=== PATIENT | male | born 1965 | race Caucasian/White ===

== ENCOUNTER 2024-04-09 20:42 | Emergency (ER) | payer OTHER, SELFPAY ==
[2024-04-09] VITALS (15 sets, daily range): BP systolic 154–176; BP diastolic 82–110; PULSE 111–128; RESP 14–27; TEMP 36.8; O2SAT 91–96
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
[2024-04-09 21:13] LABS: Abs Immature Grans 0.09 10^3/uL (0.0-0.06); Absolute Basophil Count 0.03 10^3/uL (0.0-0.2); Absolute Eosinophil Count 0.03 10^3/uL (0.0-0.7); Absolute Lymphocyte Count 0.85 10^3/uL (1.2-3.4); Basophils % 0.2 %; Eosinophils % 0.2 %; HCT 45.5 % (40.0-50.0); HGB 14.9 g/dL (13.5-17.5); Immature Grans % 0.6 %; Lymphocytes % 6.1 %; MCHC 32.7 % (32.0-36.0); MCV 92 fL (80-95); Monocytes % 4.9 %; Platelet Count 242 10^3/uL (130-400); RBC 4.97 10^6/uL (4.36-5.78); RDW 13.2 % (11.8-14.1); RDW-SD 44.5 fL; WBC 13.97 10^3/uL (4.4-10.8)
[2024-04-09 21:15] LABS: Absolute Monocyte Count 0.68 10^3/uL (0.1-0.8); Absolute Neutrophil Count 12.29 10^3/uL (1.2-6.7)
[2024-04-09] MEDS: Ondansetron 4 MG/2 ML VIAL IVP (21:18)
[2024-04-09] MEDS: Omnipaque 350 MG/ML 100 ML BTL IJ (21:24)
[2024-04-09] MEDS: Normal Saline - Diluent 50 ML VIAL IJ (21:25)
[2024-04-09] MEDS: Normal Saline Flush 10 ML SYR IVP (21:26)
[2024-04-09 21:34] LABS: INR 1.1 (0.9-1.1); PTT Activated 23.7 sec (23.6-32.8); Prothrombin Time 10.8 sec (9.1-11.1)
[2024-04-09 21:44] LABS: ALT 41 U/L (16-63); AST 76 U/L (15-37); Albumin 3.5 g/dL (3.4-5.0); Alkaline Phosphatase 116 U/L (46-116); Anion Gap 9.3 mmol/L (3-11); BUN 24 mg/dL (7-18); Bilirubin, Direct 0.2 mg/dL (0.0-0.2); Bilirubin, Total 0.82 mg/dL (0.2-1.0); CO2 27.7 mmol/L (21.0-32.0); CREATININE 1.2 mg/dL (0.70-1.30); Calcium 9.7 mg/dL (8.5-10.1); Chloride 101 mmol/L (98-107); Estimated GFR 69.23 (mL/min/1.73m2); Glucose 162 mg/dL (74-106); Lipase 23 U/L (16-77); Magnesium 2.2 mg/dL (1.8-2.4); Sodium 138 mmol/L (136-145); TSH (W/Ref FT4) 2.22 uIU/mL (0.36-3.74); Total Protein 7.5 g/dL (6.4-8.2)
[2024-04-09] MEDS: Prochlorperazine 10 MG/2 ML VIAL IVP (22:08)
[2024-04-09] MEDS: Pantoprazole 40 MG VIAL IVP (22:09)
[2024-04-09] MEDS: Normal Saline 100 ML 400 ML (22:10)
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
[2024-04-09] MEDS: Ondansetron O.D.T. 4 MG TABEF, 3 TABS/BTL PO (22:54)
== END 2024-04-09 22:54 | disposition home or self-care (01) ==
PROVIDERS: Emergency Provider Emergency Medicine
DX: S09.8XXA Other specified injuries of head, initial encounter (principal); R10.9 Unspecified abdominal pain; R11.2 Nausea with vomiting, unspecified; R22.41 Localized swelling, mass and lump, right lower limb; R07.89 Other chest pain; R19.7 Diarrhea, unspecified; V48.0XXA Car driver injured in noncollision transport accident in nontraffic accident, initial encounter
CPT/HCPCS: 36415; 74177; 80053; 83690; 93005; 96374; 96375; 99285; 70450; 71260; 72125; 82248; 83735; 84443; 85025; 85610; 85730; 93010; 99283; J0780; J2405; J2470; J3490

== ENCOUNTER 2024-04-12 16:06 | Inpatient (IN) | payer OTHER, SELFPAY ==
[2024-04-12] VITALS (18 sets, daily range): BP systolic 117–151; BP diastolic 64–89; PULSE 104–115; RESP 15–21; TEMP 37.2; O2SAT 89–98
--- NOTE | 2024-04-12 16:00 | RT.EKG_ITS ---
APPROVED REPORT Exam: Resting ECG Reason for Exam: Chest pain, Dyspnea Patient Location: E HR:110 bpm ECG Measurements Heart Rate 110 AXIS SD 151 P 37 QRSd 108 QRS 72 QT 363 T -6 QTc 490 Conclusion Sinus tachycardia...rate> 99 Probable left atrial enlargement...P >50mS, <-0.10mV V1
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
--- NOTE | 2024-04-12 16:30 | DI.CT_ITS ---
Exam(s) CT CHEST PE ABD PELVIS W EXAM: CT CHEST PE ABD PELVIS W CLINICAL HISTORY: tachy, sob, abd pain distention, recent trauma. TECHNIQUE: Imaging Protocol: Axial CT angiography was performed with multi-slice acquisition and m ulti-planar and/or 3D reconstructions. CONTRAST MATERIAL: Intravenous: Omnipaque 350 Contrast volume:100 ml Oral: None COMPARISON: CT CT CHEST/ABD/PEL W from 04/09/2024 FINDINGS: CHEST: PULMONARY ARTERIES: There is very poor opacification of the pulmonary artery tree due to suboptimal b olus timing. However, there are intraluminal filling defects consistent with pulmonary emboli again noted in the distal right main pulmonary artery as well as arteries right upper right middle and righ t lower lobes. Also multiple left lower lobe vessels involved. LUNGS: Finding in the superior segment right lower lobe again noted extending from hilum to pleural s urface is unchanged. Cannot exclude possibly that this is developing pulmonary infarct. No other si gnificant focal right lung findings.Some atelectasis noted in the left lung base. No pleural effusio ns. No significant focal findings in the trachea and mainstem bronchi. MEDIASTINUM: There is no hilar nor mediastinal adenopathy. Hiatal hernia and uniformly thickened esop hagus wall probably related to chronic esophagitis. CARDIAC: Heart size is upper normal. There is no pericardial effusion. Ventricular ratio is approxi mately 1:1. There is no obvious reflux of intravenous contrast into the intrahepatic IVC. Diameter of the thoracic aorta is normal. There is no evidence of dissection. OSSEOUS: No significant osseous lesions.No thoracic vertebral fractures. ABDOMEN: There is now a small amount of ascites which was not evident 3 days ago. This is seen in the depende nt aspect of the pelvis and the right paracolic gutter and perihepatic. LIVER: Hepatic steatosis again noted. No liver laceration evident. Small amount of perihepatic asci brad seen. GALLBLADDER/BILIARY: Some contrast is seen in the gallbladder lumen related to the prior contrast inf used CT scan of 3 days ago. CBD is not dilated. PANCREAS: No evidence of pancreatic mass nor dilatation of the pancreatic duct. SPLEEN: Spleen is not enlarged. There are no intrasplenic lesions. No splenic laceration. Splenic a nd portal veins are patent. ADRENALS: There are no significant adrenal masses. KIDNEYS:No renal lacerations nor subcapsular hematomas. No incidental cysts. No calculi nor hydrone phrosis. No solid renal masses. ABDOMINAL AORTA: Unremarkable. Intact. No aneurysms. Iliac arteries unremarkable. LYMPH NODES: There is no retroperitoneal or para-aortic adenopathy. ABDOMINAL WALL: There is anterior abdominal wall left para umbilical hernia noted which contains mese nteric fat and a density which is unchanged. Does not appear to contain bowel loops in the hernia sa c. GI: Stomach and duodenum are not distended. However, there are again noted abnormally dilated small bowel loops measuring up to almost 5 cm. The left side of the colon is collapsed. The transverse co dorina and right side of the colon are not collapsed but the appearance of right-sided bowel may reflect prior partial resection. Appendix not identified and may be surgically absent. Sigmoid diverticulosis without evidence of obv ious acute diverticulitis. PELVIS: LYMPH NODES: There is no intrapelvic nor inguinal adenopathy. URINARY BLADDER: No calculi nor masses evident REPRODUCTIVE: Minimally prominent prostate. Seminal vesicles unremarkable. OSSEOUS: No fractures. No significant osseous lesions. IMPRESSION: 1. Compared to prior CT scan 04/09/2024 there are again noted bilateral pulmonary emboli. There maria g ears to be an element of right heart strain. Cannot exclude developing pulmonary infarct in the righ t lower lobe. There are no pleural effusions. 2. Further distension of small bowel loops and there is now development of small amount of ascites. There appears to be evidence of prior partial right/distal small bowel resection. Concerning for thi ckened bowel obstruction. Surgical consultation recommended. 3. No hernia and circumferentially thickened entire esophagus consistent with probable esophagitis. 4. 5. RADIATION DOSE DELIVERED: 824.23mGy.cm Total DLP DATA REPOSITORY: All CT scans at this facility are submitted to the National Radiology Data Registry (NRDR) Dose Index Registry (DIR) with the [employer] ([employer]). RADIATION OPTIMIZATION: All CT scans at this facility use at least one of these dose optimization te chniques: automated exposure control; mA and/or kV adjustment per patient size (includes targeted exa ms where dose is matched to clinical indication); or iterative reconstruction.
--- NOTE | 2024-04-12 16:30 | DI.RAD_ITS ---
Exam(s) XR FEMUR RT EXAM: XR FEMUR RT CLINICAL HISTORY: pain, subacute trauma. TECHNIQUE: 2D digital imaging was performed. COMPARISON: No exams were available for comparison FINDINGS: 4 views There calcific density seen just above the greater trochanter and adjacent to the lesser trochanter. Doubtful for acute fractures. No other osseous findings in the femur. Mild degenerative changes in the hip. No osseous lesions. IMPRESSION: No acute femur fracture evident DATA REPOSITORY: RADIATION DOSE DELIVERED:
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
[2024-04-12 17:45] LABS: Absolute Basophil Count 0.07 10^3/uL (0.0-0.2); Absolute Eosinophil Count 0.08 10^3/uL (0.0-0.7); Absolute Lymphocyte Count 0.74 10^3/uL (1.2-3.4); Absolute Monocyte Count 0.81 10^3/uL (0.1-0.8); Absolute Neutrophil Count 3.62 10^3/uL (1.2-6.7); Basophils % 1.3 %; Eosinophils % 1.4 %; HCT 38.8 % (40.0-50.0); HGB 12.8 g/dL (13.5-17.5); Immature Grans % 3.6 %; Lymphocytes % 13.4 %; MCH 29.6 pg (27.0-33.0); MCV 90 fL (80-95); Monocytes % 14.7 %; Neutrophils % 65.6 %; Nucleated RBC 1.3 % (0.0-0.3); Platelet Count 237 10^3/uL (130-400); RBC 4.32 10^6/uL (4.36-5.78); RDW 13.2 % (11.8-14.1); RDW-SD 43.2 fL; WBC 5.52 10^3/uL (4.4-10.8)
[2024-04-12 17:59] LABS: INR 1.2 (0.9-1.1); PTT Activated 24.4 sec (23.6-32.8); Prothrombin Time 11.5 sec (9.1-11.1)
[2024-04-12 18:06] LABS: ALT 30 U/L (16-63); AST 32 U/L (15-37); Alkaline Phosphatase 91 U/L (46-116); Anion Gap 6.7 mmol/L (3-11); BUN 32 mg/dL (7-18); CO2 29.3 mmol/L (21.0-32.0); CREATININE 1.3 mg/dL (0.70-1.30); Chloride 96 mmol/L (98-107); Estimated GFR 62.89 (mL/min/1.73m2); Glucose 115 mg/dL (74-106); Lipase 32 U/L (16-77); Magnesium 2.1 mg/dL (1.8-2.4); NT-proBNP 44 pg/mL (<300); Sodium 132 mmol/L (136-145); Total Protein 6.5 g/dL (6.4-8.2); Troponin I 4 ng/L (<or=76)
[2024-04-12] MEDS: Ondansetron 4 MG/2 ML VIAL IVP (18:53)
[2024-04-12] MEDS: Omnipaque 350 MG/ML 100 ML BTL IJ (19:05)
[2024-04-12] MEDS: Normal Saline - Diluent 50 ML VIAL IJ (19:05)
[2024-04-12 19:15] LABS: Bilirubin Small (Negative); Blood Negative (Negative); Clarity Clear (Clear); Glucose Negative (Negative); Ketones 15 mg/dL (Negative); Leukocyte Esterase Negative (Negative); Nitrite Negative (Negative); Urobilinogen 0.2 mg/dL (Up to 0.2)
--- NOTE | 2024-04-12 19:43 | DI.VRAD_ITS ---
PROCEDURE INFORMATION: Exam: XR Right Tibia and Fibula Exam date and time: 04/12/2024 19:17 Age: 58 years old Clinical indication: Other: Pain, subacute trauma; Additional info: Tachy, SOB, abd pain distention, recent trauma TECHNIQUE: Imaging protocol: Radiologic exam of the right tibia and fibula. Views: 2 views. COMPARISON: US LOWER EXTREMITY VENOUS RT 04/10/2024 12:29 FINDINGS: Bones/joints: No acute fracture or subluxation. Soft tissues: Soft tissue swelling distally. IMPRESSION: No acute bony pathology. Dictated and Authenticated by: Lindsey Mejia MD. Ordering:NINA Robledo MD
--- NOTE | 2024-04-12 19:43 | DI.VRAD_ITS ---
PROCEDURE INFORMATION: Exam: XR Right Femur Exam date and time: 04/12/2024 19:12 Age: 58 years old Clinical indication: Other: Pain, subacute trauma; Additional info: Tachy, SOB, abd pain distention, recent trauma TECHNIQUE: Imaging protocol: Radiologic exam of the right femur. Views: 2 views. COMPARISON: US LOWER EXTREMITY VENOUS RT 04/10/2024 12:29 FINDINGS: Bones/joints: No acute fracture or subluxation. Soft tissues: Benign-appearing enthesophytes. Benign appearing distal quadriceps enthesophyte. IMPRESSION: No acute bony pathology. Dictated and Authenticated by: Lindsey Mejia MD. Ordering:NINA Robledo MD
--- NOTE | 2024-04-12 19:44 | DI.VRAD_ITS ---
PROCEDURE INFORMATION: Exam: XR Right Foot Exam date and time: 04/12/2024 19:18 Age: 58 years old Clinical indication: Other: Pain, subacute trauma; Additional info: Tachy, SOB, abd pain distention, recent trauma TECHNIQUE: Imaging protocol: Radiologic exam of the right foot. Views: 3 or more views. COMPARISON: CR XR TIB/FIB RT 04/12/2024 19:17 FINDINGS: Bones/joints: Plantar calcaneal spur. Posterior calcaneal spur. No acute fracture or subluxation. Scattered yevj-hy-poazdlod degenerative changes. Soft tissues: Generalized soft tissue swelling. IMPRESSION: No acute bony pathology. Dictated and Authenticated by: Lindsey Mejia MD. Ordering:NINA Robledo MD
--- NOTE | 2024-04-12 19:52 | DI.VRAD_ITS ---
Addendum created by Lindsey Mejia MD on 04/12/2024 8:00:18 PM EDT: This report contains findings that may be critical to patient care. The pertinent findings were communicated via telephone with Venkat Hampton at 19:58 EDT on 04/12/2024. The findings were acknowledged and understood. Initial report created on 04/12/2024 7:51:41 PM EDT: PROCEDURE INFORMATION: Exam: CTA Chest With Contrast CTA Abdomen With Contrast Exam date and time: 04/12/2024 19:02 Age: 58 years old Clinical indication: Shortness of breath; Other: Tachy, SOB, abd pain distention, recent trauma TECHNIQUE: Imaging protocol: Computed tomographic angiography of the chest with contrast. Exam focused on the arteries. Computed tomographic angiography of the abdomen with contrast. Exam focused on the arteries. 3D rendering (Not supervised by radiologist): MIP and/or 3D reconstructed images were created by the technologist. Contrast material: OMNI 350; Contrast volume: 100 ml; Contrast route: INTRAVENOUS (IV); COMPARISON: CT CHEST/ABD/PEL W 04/09/2024 21:54 FINDINGS: VASCULATURE: Pulmonary arteries: Very poor characterization of the pulmonary tree due to poor timing of the contrast bolus; there is however embolic disease in right upper, right middle and right lower lobe lobar to segmental pulmonary arteries, probably at least some small segmental left lower lobe pulmonary artery emboli, without definite saddle embolus. There is probably embolus in the distal right main pulmonary artery. Accounting for the previous technique in different, pulmonary emboli are probably similar to prior. Aorta: No aortic aneurysm. No aortic dissection. Celiac trunk and mesenteric arteries: No occlusion or significant stenosis. Renal arteries: No occlusion or significant stenosis. CHEST: Lungs: Mild dependent subsegmental atelectasis. No airspace consolidation. Pleural spaces: Unremarkable. No pneumothorax. No pleural effusion. Heart: Cardiac size is upper limits of normal. Suspected mild wall thickening of the esophagus is new although fluid-filled distension has resolved. Heart RV/LV ratio: RV to LV ratio is elevated at 1.1. ABDOMEN AND PELVIS: Liver: Fatty liver with likely benign peripheral transient hepatic attenuation defect. No mass lesions are seen. Gallbladder and biliary ducts: Unremarkable. No calcified stones. No ductal dilation. Pancreas: Unremarkable. No mass. No ductal dilation. Spleen: Unremarkable. No splenomegaly. Adrenal glands: Unremarkable. No mass. Kidneys: Unremarkable kidneys. No solid mass. No hydronephrosis. Stomach and bowel: Moderate to severe distension of majority of small bowel measuring up to 5 cm in diameter, multiple air-fluid levels with slight decompression of the distal ileum only. Overall degree of small bowel distension is slightly worsened since prior. The distended small bowel appears to push on the left colon/splenic flexure, and the colon is mildly gas-filled proximal to this level. Distal colon is decompressed. No definite pathologic colonic wall thickening. Intraperitoneal space: No abscess or free air. Trace abdominal and small pelvic free fluid. Reproductive: Moderate prostatic enlargement. Lymph nodes: Unremarkable. No enlarged lymph nodes. Bones/joints: Chronic bony changes with no acute fracture. Soft tissues: Mild dependent subcutaneous edema. Small umbilical hernia containing fat and a tiny amount of fluid/edema. Mild edema around pelvic and upper lower extremity soft tissues/subcutaneous fat. IMPRESSION: 1. Redemonstration of bilateral pulmonary emboli. 2. Evidence of right ventricular strain. 3. Mild dependent subsegmental atelectasis. 4. The moderate to severe small bowel ileus favored over obstruction has worsened. 5. Distended small bowel pushes on left-sided colon which demonstrates persistent distension proximal to this level. 6. Trace abdominal and small pelvic free fluid new since prior. 7. A mild esophagitis appears new. 8. Additional findings as described. Dictated and Authenticated by: Lindsey Mejia MD. Ordering:NINA Robledo MD
[2024-04-12] MEDS: Heparin in 0.45% NaCl 25,000 UNIT/250 ML BAG 18 UNIT IV (20:14)
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
[2024-04-12 21:29] LABS: Troponin I 6 ng/L (<or=76)
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
--- NOTE | 2024-04-12 23:00 | NUR.NOTE ---
Nursing Note: Patient O2 sat drops to 89% on RA. Placed on 1L NC. Oxygenating at 96%
[2024-04-13] VITALS (79 sets, daily range): BP systolic 111–177; BP diastolic 67–142; PULSE 98–120; RESP 11–23; TEMP 37–37.3; O2SAT 88–99
[2024-04-13] MEDS: Ondansetron O.D.T. 4 MG TABEF PO ×2 (02:46→14:32)
[2024-04-13] MEDS: Lactated Ringers 1,000 ML 125 ML IV ×3 (02:47→20:50)
[2024-04-13 03:07] LABS: PTT Activated 80.8 sec (23.6-32.8)
[2024-04-13 04:42] LABS: Troponin I 6 ng/L (<or=76)
[2024-04-13 06:25] LABS: HCT 34.4 % (40.0-50.0); HGB 11.6 g/dL (13.5-17.5); MCH 30.2 pg (27.0-33.0); MCHC 33.7 % (32.0-36.0); MCV 90 fL (80-95); MPV 9.9 fL (8.0-11.0); Platelet Count 236 10^3/uL (130-400); RBC 3.84 10^6/uL (4.36-5.78); RDW 13.3 % (11.8-14.1); RDW-SD 43.2 fL
[2024-04-13 06:44] LABS: ALT 24 U/L (16-63); AST 27 U/L (15-37); Albumin 2.5 g/dL (3.4-5.0); Alkaline Phosphatase 80 U/L (46-116); Anion Gap 3.9 mmol/L (3-11); BUN 30 mg/dL (7-18); Bilirubin, Total 0.84 mg/dL (0.2-1.0); CO2 30.1 mmol/L (21.0-32.0); CREATININE 1.1 mg/dL (0.70-1.30); Calcium 7.7 mg/dL (8.5-10.1); Chloride 99 mmol/L (98-107); Estimated GFR 76.85 (mL/min/1.73m2); Glucose 120 mg/dL (74-106); Magnesium 2.1 mg/dL (1.8-2.4); Potassium 3.5 mmol/L (3.5-5.1); Sodium 133 mmol/L (136-145); Total Protein 5.6 g/dL (6.4-8.2)
[2024-04-13 06:46] LABS: Troponin I 7 ng/L (<or=76)
--- NOTE | 2024-04-13 07:11 | NUR.NOTE ---
Access chart to reconcile EKG orders and EKG's in [facility]. Nursing Note:
--- NOTE | 2024-04-13 08:00 | DI.US_ITS ---
APPROVED REPORT EXAM: Comprehensive 2D, Doppler, and color-flow Echocardiogram Patient Location: ER Room/Bed: 4 Malted Milk Masher: Kaila Mohamud RDCS (AE) Indications: Acute bilateral pulmonary emboli Other Information Study Quality: Fair. Technically limited study due to body habitus, inability to position patient exa m done supine bedside ER. Conclusion Normal left ventricular wall thickness and chamber size. Ejection fraction is 60%. Wall motion is n ormal Right ventricle appears normal in size Both atria are normal in size There is no structural or hemodynamically significant valvular disease Estimated right ventricular systolic pressure is 40 mmHg Wall motion Left Ventricle The left ventricle is normal size. The overall left ventricular systolic function appears normal. The re is normal left ventricular wall thickness. Regional wall motion is not well visualized but grossly normal. There is no ventricular septal defect visualized. LVEF is 60%. Right Ventricle Grossly normal right ventricular size Atria The left atrium size is normal. The right atrium size is normal. The interatrial septum is intact wit h no evidence for an atrial septal defect. Aortic Valve The aortic valve is normal in structure. Aortic valve is trileaflet. There is no aortic valvular sten osis. Trace aortic regurgitation. Mitral Valve The mitral valve is normal in structure. No evidence of mitral valve stenosis. Trace mitral regurgita tion. Tricuspid Valve The tricuspid valve is normal in structure. There is no tricuspid valve stenosis. Trace to mild tricu spid regurgitation. Pulmonic Valve The pulmonary valve is normal in structure. There is no pulmonic valvular stenosis. Trace pulmonic re gurgitation. Great Vessels The aortic root is normal in size. The ascending aorta is normal in size. The IVC was not visualized. Technically limited subcostal imaging. Pericardium Technically limited subcostal imaging. 2D Dimensions IVSD d PLAX 1.01 cm M: 0.6-1.2 Ao Root d 2.96 cm M: 3.1 - 3.7 LVPW d PLAX 1.00 cm M: 0.6 - 1.2 Ao Asc Diam d 3.26 cm M: 2.6 - 3.4 LVID d PLAX 5.20 cm M: 4.2 - 5.8 LVDs 3.60 cm M: 2.5 - 4.0 LV EF Teichholz 57.9 % FS 30.69 % LV EDV (Teich) 127.5 mL LV ESV (Teich) 53.7 mL LA Volume LA Length A4C 4.8 cm LA Length A2C 4.8 cm LA Area A4C s 19.02 cm2 LA Area A2C s 14.42 cm2 LA Vol A4C A-L 64.26 mL LA Vol A2C A-L 36.60 mL LA Vol Biplane A-L 48.7 mL LA Vol/BSA A4C A-L LA Vol/BSA A2C A-L LA Vol/BSA BP A-L 22.3 mL/m2 LA Vol A4C MOD 61.3 mL LA Vol A2C MOD 35.2 mL LA Vol BP MOD 46.6 mL LV Diastology MV E' medial 0.098 (>0.07 m/s) MV E Vmax 0.78 (0.4-1.3 m/s) MV E/E' MED 7.97 (<14) MV A Vmax 0.75 (0.4-1.3 m/s) MV E' lateral 0.102 (>0.1 m/s) E/A Ratio 1.0 MV E/E' LAT 7.62 (<14) MV E' Average 0.100 m/s MV E/E'(average) 7.79 Aortic Valve AoV Vmax 1.50 m/s LVOT Vmax 1.15 m/s AoV Peak Grad 9.0 mmHg LVOT Peak Grad 5.3 mmHg AoV Area (Vmax) 2.09 cm2 LVOT VTI 0.169 m AoV VTI 0.231 m LVOT Mean Grad 3.0 mmHg AoV Mean Luis Alberto. 0.99 m/s LVOT SV 46.16 mL AoV Mean Grad 4.6 mmHg LVOT Diam s 1.85 cm AoV Area (VTI) 2.00 cm2 AV Regurg Peak Gr. 8.97 mmHg Velocity Ratio 0.77 Mitral Valve MV DT 212 (160-240 msec) MV Vmax TIPS 0.76 m/s MV Mean Grad 1.2 (<2mmHg) MV VTI 0.178 m Pulmonary Valve RVOT Vmax 0.83 m/s RVOT Peak Gr. 2.7 mmHg RVOT VTI 0.143 m RVOT Mean Gr. 1.6 mmHg Tricuspid Valve TV S' 0.17 m/s TR Vmax 3.05 m/s TR Peak Grad 37.2 mmHg
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
[2024-04-13 09:53] LABS: PTT Activated 29.4 sec (23.6-32.8)
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
--- NOTE | 2024-04-13 12:20 | PGE_ITS ---
Date of Service Date of service: 04/13/24 Time of Service: 10:40 Assessment and Plan Assessment and plan (1) Pulmonary emboli: Status: Chronic Assessment and plan: Provoked by significant trauma. Respiratory status stable on 1-2L O2, he looks comfortable. Treated with heparin drip. Right heart strain on CT, but RV function normal on echo, mild elevation RVSP LE doppler exam pending Qualifiers: Pulmonary embolism type: multiple subsegmental (without acute cor pulmonale) Qualified Code(s): I26.94 - Multiple subsegmental pulmonary emboli without acute cor pulmonale (2) Ileus: Status: Acute Assessment and plan: Per radiology concern for SBO, but since last night this has improved clinically so I will continue to allow him to eat and monitor clinically. I did discuss with the covering surgeon but I don't think he needs a formal consult for now. (3) Blunt trauma of multiple sites of trunk: Status: Acute Assessment and plan: PT consult to help mobilize Subjective Subjective Patient reports: no new complaints and voiding w/o difficulty; denies fever Interval history since last seen: He finally was able to eat fudge pops and drink fluids this morning without nausea and vomiting. He had 2 BMs last night. His abdomen feels less bloated than it has in a few days. He still feels short of breath, no chest pain. His legs still hurt to walk. Exam Narrative Exam Narrative: General: Alert and oriented, no acute distress this morning. Patient is morbidly obese, mesomorphic lying in bed with his head at 45 degree angle and speaking slowly with monotonous tone. He appears in moderate distress from his right leg pain and abdominal discomfort. He is alert and oriented to person, place and time. He is unkempt. HEENT: Dry scabbed wounds over left eye, scalp. Left eye deviates. . Neck: Supple with normal ROM, no JVD Lungs: Fair aeration and clear to auscultation and percussion. No expiratory wheeze. No focalizing rales or rhonchi. Heart: Borderline tachycardic with regular rhythm, no murmurs or gallops. Abdomen: +BS in 4 quadrants, soft and non-tender but moderately distended, no scars on abdomen, +umbilical protuberance. no masses to percussion, no fluid wave. Skin: Abrasions as above, no open wounds. Objective Last Vital Signs Temp 37.1 C 04/13/24 10:30 Pulse 100 H 04/13/24 10:01 Resp 19 04/13/24 10:30 BP 125/71 04/13/24 10:01 Pulse Ox 99 04/13/24 10:30 Laboratory Results - last 24 hr 04/12/24 04/12/24 04/12/24 17:34 19:00 21:04 WBC 5.52 RBC 4.32 L Hgb 12.8 L D Hct 38.8 L MCV 90 MCH 29.6 MCHC 33.0 RDW 13.2 Plt Count 237 MPV 10.0 Immature Gran % 3.6 Neutrophils % 65.6 Lymphocytes % 13.4 Monocytes % 14.7 Eosinophils % 1.4 Basophils % 1.3 Nucleated RBC % 1.3 H Absolute Neutrophils 3.62 Absolute Lymphocytes 0.74 L Absolute Monocytes 0.81 H Absolute Eosinophils 0.08 Absolute Basophils 0.07 PT 11.5 H INR 1.2 H APTT 24.4 Sodium 132 L Potassium 4.0 Chloride 96 L Carbon Dioxide 29.3 Anion Gap 6.7 BUN 32 H Creatinine 1.3 Est GFR (CKD-EPI 2020) 62.89 Glucose 115 H Calcium 8.0 L Magnesium 2.1 Total Bilirubin 1.10 H AST 32 ALT 30 Alkaline Phosphatase 91 Troponin I 4 6 NT-Pro-B Natriuret Pep 44 Total Protein 6.5 Albumin 3.0 L Lipase 32 Urine Color Yellow Urine Clarity Clear Urine pH 6.0 Ur Specific [place] 1.020 Urine Protein Trace Urine Ketones 15 H Urine Blood Negative Urine Nitrite Negative Urine Bilirubin Small H Urine Urobilinogen 0.2 Ur Leukocyte Esterase Negative Urine Glucose Negative ABO/Rh A Positive Antibody Screen NEGATIVE 04/13/24 04/13/24 04/13/24 02:34 06:19 09:28 WBC 6.50 RBC 3.84 L Hgb 11.6 L Hct 34.4 L MCV 90 MCH 30.2 MCHC 33.7 RDW 13.3 Plt Count 236 MPV 9.9 Immature Gran % Neutrophils % Lymphocytes % Monocytes % Eosinophils % Basophils % Nucleated RBC % Absolute Neutrophils Absolute Lymphocytes Absolute Monocytes Absolute Eosinophils Absolute Basophils PT INR APTT 80.8 H* 29.4 Sodium 133 L Potassium 3.5 Chloride 99 Carbon Dioxide 30.1 Anion Gap 3.9 BUN 30 H Creatinine 1.1 Est GFR (CKD-EPI 2020) 76.85 Glucose 120 H Calcium 7.7 L Magnesium 2.1 Total Bilirubin 0.84 AST 27 ALT 24 Alkaline Phosphatase 80 Troponin I 6 7 NT-Pro-B Natriuret Pep Total Protein 5.6 L Albumin 2.5 L Lipase Urine Color Urine Clarity Urine pH Ur Specific [place] Urine Protein Urine Ketones Urine Blood Urine Nitrite Urine Bilirubin Urine Urobilinogen Ur Leukocyte Esterase Urine Glucose ABO/Rh Antibody Screen Time Spent with Patient Time Spent with Patient: 35-49 minutes Time was spent: preparing to see the patient(eg.review tests), obtaining and/or reviewing separately otained hiistory, ordering medications,tests, procedures, referring, communicating with other health group care worker, indepentently interpreting results, counseling the patient and care coordination
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
[2024-04-13] MEDS: Heparin in 0.45% NaCl 25,000 UNIT/250 ML BAG 22 UNIT IV (14:08)
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
[2024-04-13 17:19] LABS: PTT Activated 146.4 sec (23.6-32.8)
[2024-04-13 18:17] LABS: Abs Immature Grans 0.27 10^3/uL (0.0-0.06); Absolute Basophil Count 0.04 10^3/uL (0.0-0.2); Absolute Eosinophil Count 0.18 10^3/uL (0.0-0.7); Absolute Lymphocyte Count 0.99 10^3/uL (1.2-3.4); Absolute Monocyte Count 0.79 10^3/uL (0.1-0.8); Absolute Neutrophil Count 4.48 10^3/uL (1.2-6.7); Basophils % 0.6 %; Eosinophils % 2.7 %; HGB 11.3 g/dL (13.5-17.5); Lymphocytes % 14.7 %; MCH 29.7 pg (27.0-33.0); MCHC 33.2 % (32.0-36.0); MCV 90 fL (80-95); MPV 10.1 fL (8.0-11.0); Monocytes % 11.7 %; Neutrophils % 66.3 %; Nucleated RBC 0.7 % (0.0-0.3); Platelet Count 252 10^3/uL (130-400); RDW 13.5 % (11.8-14.1); RDW-SD 43.6 fL; WBC 6.75 10^3/uL (4.4-10.8)
[2024-04-13] MEDS: Pantoprazole 40 MG VIAL IVP (18:46)
[2024-04-13 21:34] LABS: HCT 33.9 % (40.0-50.0); HGB 11.3 g/dL (13.5-17.5)
[2024-04-14] MEDS: Normal Saline Flush 10 ML SYR IVP ×5 (00:29→20:53)
[2024-04-14 02:52] VITALS: BP 136/82; PULSE 100; RESP 16; TEMP 36.3; O2SAT 95
[2024-04-14] MEDS: Acetaminophen 325 MG TAB PO (02:58)
[2024-04-14] MEDS: Lactated Ringers 1,000 ML 125 ML IV (06:04)
[2024-04-14] MEDS: Pantoprazole 40 MG VIAL IVP ×2 (06:05→18:09)
[2024-04-14 06:57] LABS: Abs Immature Grans 0.37 10^3/uL (0.0-0.06); Absolute Basophil Count 0.04 10^3/uL (0.0-0.2); Absolute Eosinophil Count 0.22 10^3/uL (0.0-0.7); Absolute Lymphocyte Count 1.08 10^3/uL (1.2-3.4); Absolute Monocyte Count 0.85 10^3/uL (0.1-0.8); Basophils % 0.6 %; Eosinophils % 3.4 %; HCT 32.5 % (40.0-50.0); HGB 10.7 g/dL (13.5-17.5); Immature Grans % 5.7 %; Lymphocytes % 16.7 %; MCH 29.7 pg (27.0-33.0); MCHC 32.9 % (32.0-36.0); MCV 90 fL (80-95); MPV 9.9 fL (8.0-11.0); Monocytes % 13.2 %; Neutrophils % 60.4 %; Nucleated RBC 0.5 % (0.0-0.3); RDW 13.4 % (11.8-14.1); WBC 6.46 10^3/uL (4.4-10.8)
[2024-04-14 07:17] LABS: ALT 19 U/L (16-63); AST 24 U/L (15-37); Albumin 2.4 g/dL (3.4-5.0); Alkaline Phosphatase 77 U/L (46-116); Anion Gap 6.1 mmol/L (3-11); BUN 19 mg/dL (7-18); Bilirubin, Total 0.91 mg/dL (0.2-1.0); CO2 27.9 mmol/L (21.0-32.0); Calcium 7.7 mg/dL (8.5-10.1); Chloride 100 mmol/L (98-107); Estimated GFR 86.16 (mL/min/1.73m2); Glucose 111 mg/dL (74-106); Potassium 3.3 mmol/L (3.5-5.1); Sodium 134 mmol/L (136-145); Total Protein 5.2 g/dL (6.4-8.2)
[2024-04-14 07:27] LABS: Diff Comment Agrees w/ Instrument; Platelet Count 249 10^3/uL (130-400)
[2024-04-14 07:28] LABS: Polychromasia Present
[2024-04-14 07:30] VITALS: BP 142/78; PULSE 90; RESP 17; TEMP 36.5; O2SAT 94
--- NOTE | 2024-04-14 08:56 | PDOC.CMPRO ---
Date of service: 04/14/24 Time of Service: 08:56 Care Management Progress Note Progress Note Text Progress Note Text: Zohaib was lying in bed when CM met with him. He denied having any significant pain however his left leg is still bothersome. He described it as feeling more numb than painful, Zohaib stated he believes it is because of the swelling. In addition to the large DVT and bilateral pulmonary emboli, he had abdominal pain which was felt to possibly be due to a bowel obstruction. Yesterday he had a bowel movement which was heme positive. Today he has been given a full liquid diet. He had eaten lunch shortly before CM met with him and vomited a small amount. Zohaib's abdomen appeared very distended and he confirmed it was uncomfortable. Discharge Potential Discharge Needs: PCP F/U Appt Anticipated Barriers to Discharge: None Identified Patient/Family Education Needs: Review discharge instructions, discuss Ask Me Three Transportation: Private vehicle Plan: Anticipate Zohaib will be discharged home with no new services when medically stable. He will likely return to his mother's home to recuperate for a short time before returning to his own home, alone. Per PT evaluation, he may benefit from outpatient PT after discharge.Zohaib will follow up with his PCP and plan of care and transport with family. CM will follow and continue to assess for discharge needs. SDOH(Care Management) Screening Will the Patient Participate in the Screening?: Declined to provide
--- NOTE | 2024-04-14 10:41 | PT.INTREAT ---
PT Notes Visit Reasons: Acute bilateral PE, Ileus Inpatient Physical Therapy Treatment Note [facility] Date: 04/14/2024 PRECAUTIONS:NPO, IV infusing, Telemetry in place SUBJECTIVE: Pt reporting right shoulder pain upon sitting at EOB. He states the pain is along lateral humerus and along medial border of scapula. He states he only has the pain in sitting. Pt reporting intermittent numbness to Right hand sitting and Numbness B LE R>L OBJECTIVE: Pt supine in bed with telemetry and IV in place. Pt motivated to participate. ? Pt demonstrates full AROM BUE and LE ? PAIN: 3/10 right shoulder when not supported. VITALS: ?monitored via telemetry Therapeutic Activities ([id number][]): Direct one-on-one instruction in dynamic activities to improve functional performance. ? BED MOBILITY/TRANSFERS? Supine-sit: min A ? Sit-supine: Independent ? Sit-stand: Supervision with cues for hand placement? Stand-sit: supervision with cues for hand placement ? Bed-Chair: Supervision with FWW? Chair-bed: Supervision with FWW Provided skilled cues and instruction on performance and technique throughout. ? Assistive Device: FWW ? Weight bearing: As tolerated Assist: Supervision? Distance:?75 feet x 2 ? Deviation: Right lower extremity decreased knee flexion during swing phase, knee instability at mid stance, excessive weightbearing through upper extremities to unweight right lower extremity.? STAIRS: ? Therapeutic Exercises ([id number][]): Direct one-on-one instruction in therapeutic exercises to develop strength, endurance, range of motion and flexibility. ? Exercises ? seated, LAQ, marching, PF/DF with knee extension, x 10 reps Provided skilled instruction in proper exercise performance Provided skilled manual cues to facilitate proper muscle recruitment and/or form: [] ASSESSMENT:?Patient patient demonstrates right lateral glenohumeral joint pain and medial scapular pain on the right when sitting with right upper extremity unsupported. Patient demonstrates full range of motion right upper extremity pain is not dependent on movement. When when right upper extremity is supported pain is eliminated. Negative subluxation noted to right shoulder. Patient with decreased R knee extension with poor motor control in closed chain tasks. Pt demonstrates instability at mid stance through heel off. PLAN: Continued skilled PT for strengthening transfers balance and ambulation with least restrictive device TREATMENT CODE/TIME: 35693, [id number] DISCHARGE RECOMMENDATION: Home with outpatient PT
[2024-04-14 11:12] VITALS: BP 128/61; PULSE 94; RESP 16; TEMP 36.2; O2SAT 94
[2024-04-14 13:24] LABS: HCT 33.8 % (40.0-50.0); HGB 11.2 g/dL (13.5-17.5)
[2024-04-14] MEDS: Ondansetron O.D.T. 4 MG TABEF PO (14:05)
--- NOTE | 2024-04-14 14:31 | W.PM.PROGNOT ---
Date of Service Date of service: 04/14/24 Time of Service: 14:31 Assessment and Plan Assessment and plan (1) Pulmonary emboli: Status: Chronic Assessment and plan: -Provoked by significant trauma. -initially required 1-2L O2, now on room air -Treated with heparin drip, though held overnight for dark stools and concern for GI bleed (see below) -Right heart strain on CT, but RV function normal on echo, mild elevation RVSP -LE doppler with occlusive DVT in posterior tibial veins throughout length of calf and one peroneal vein shows partially occlusive thrombus from proximal to mid calf Qualifiers: Pulmonary embolism type: multiple subsegmental (without acute cor pulmonale) Qualified Code(s): I26.94 - Multiple subsegmental pulmonary emboli without acute cor pulmonale (2) Acute respiratory failure with hypoxia: Status: Acute Assessment and plan: -secondary to PE as noted above -has required up to 2L NC, now on RA (3) GI bleed: Status: Chronic Assessment and plan: -suspected with dark stools overnight but Hb remains stable -heparin drip held overnight -restarting heparin this afternoon, will check Q6hr H/H and transition to PO eliquis in AM if Hb remains stable (4) Ileus: Status: Acute Assessment and plan: -Per radiology concern for SBO, but since last night this has improved clinically so I will continue to allow him to eat and monitor clinically. =I did discuss with the covering surgeon but I don't think he needs a formal consult for now. (5) Blunt trauma of multiple sites of trunk: Status: Acute Assessment and plan: PT consult to help mobilize Subjective Subjective Interval history since last seen: Patient states that he was doing well this morning. He understands that his heparin drip was held overnight as he had black stools concerning for GI bleed. However, his hemoglobin remained stable. He understands plan to restart heparin drip through this afternoon, and repeat hemoglobin level and if remains stable and no obvious signs of ongoing GI bleed will initiate p.o. Eliquis with plan for discharge tomorrow 04/15/2024. Exam Narrative Exam Narrative: Well-appearing gentleman laying in bed in no acute distress, ANO x 4, heart regular rhythm, lungs clear to auscultation bilaterally, abdomen soft, nontender, nondistended Objective Last Vital Signs Temp 97.2 F L 04/14/24 11:12 Pulse 94 H 04/14/24 11:12 Resp 16 04/14/24 11:12 BP 128/61 04/14/24 11:12 Pulse Ox 94 04/14/24 11:12 Laboratory Results - last 24 hr 04/13/24 04/13/24 04/13/24 16:20 17:56 21:27 WBC 6.75 RBC 3.80 L Hgb 11.3 L 11.3 L Hct 34.0 L 33.9 L MCV 90 MCH 29.7 MCHC 33.2 RDW 13.5 Plt Count 252 MPV 10.1 Immature Gran % 4.0 Neutrophils % 66.3 Lymphocytes % 14.7 Monocytes % 11.7 Eosinophils % 2.7 Basophils % 0.6 Nucleated RBC % 0.7 H Absolute Neutrophils 4.48 Absolute Lymphocytes 0.99 L Absolute Monocytes 0.79 Absolute Eosinophils 0.18 Absolute Basophils 0.04 RBC Morphology Polychromasia APTT 146.4 H* Sodium Potassium Chloride Carbon Dioxide Anion Gap BUN Creatinine Est GFR (CKD-EPI 2020) Glucose Calcium Total Bilirubin AST ALT Alkaline Phosphatase Total Protein Albumin 04/14/24 04/14/24 06:32 13:15 WBC 6.46 RBC 3.60 L Hgb 10.7 L 11.2 L Hct 32.5 L 33.8 L MCV 90 MCH 29.7 MCHC 32.9 RDW 13.4 Plt Count 249 MPV 9.9 Immature Gran % 5.7 Neutrophils % 60.4 Lymphocytes % 16.7 Monocytes % 13.2 Eosinophils % 3.4 Basophils % 0.6 Nucleated RBC % 0.5 H Absolute Neutrophils 3.90 Absolute Lymphocytes 1.08 L Absolute Monocytes 0.85 H Absolute Eosinophils 0.22 Absolute Basophils 0.04 RBC Morphology See Below Polychromasia Present APTT Sodium 134 L Potassium 3.3 L Chloride 100 Carbon Dioxide 27.9 Anion Gap 6.1 BUN 19 H Creatinine 1.0 Est GFR (CKD-EPI 2020) 86.16 Glucose 111 H Calcium 7.7 L Total Bilirubin 0.91 AST 24 ALT 19 Alkaline Phosphatase 77 Total Protein 5.2 L Albumin 2.4 L Time Spent with Patient Time Spent with Patient: >50 minutes Time was spent: preparing to see the patient(eg.review tests), obtaining and/or reviewing separately otained hiistory, ordering medications,tests, procedures, referring, communicating with other health residential caregiver, indepentently interpreting results, counseling the patient and care coordination
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
[2024-04-14 16:10] VITALS: BP 140/83; PULSE 94; RESP 17; TEMP 36.7; O2SAT 96
[2024-04-14 16:23] LABS: PTT Activated 24.1 sec (23.6-32.8)
--- NOTE | 2024-04-14 16:50 | PT.INTREAT ---
PT Notes Visit Reasons: Acute bilateral PE, Ileus Date: 04/14/2024 PRECAUTIONS:NPO, IV infusing, Telemetry in place SUBJECTIVE: Pt reports he feels very bloated this afternoon requested to use the toilet prior to going for therapy session, pt reports the shoulder feels much better and is moving without pain OBJECTIVE: Pt in bed IV line, ? PAIN: denies VITALS: ?monitored via telemetry Therapeutic Activities 38092: Direct one-on-one instruction in dynamic activities to improve functional performance. ? BED MOBILITY/TRANSFERS? Supine-sit: independent ? Sit-supine: Independent ? Sit-stand: independent? Stand-sit: independent? Bed-Chair: Supervision? Chair-bed: Supervision Provided skilled cues and instruction on performance and technique throughout. ? Assistive Device: FWW ? Weight bearing: As tolerated Assist: Supervision? Distance:?150 feet x 2 ? Deviation: Right lower extremity decreased knee flexion during swing phase, knee instability at mid stance, excessive weight bearing through upper extremities to unweight right lower extremity.? Therapeutic Exercises 84854 : Direct one-on-one instruction in therapeutic exercises to develop strength, endurance, range of motion and flexibility. Exercises seated, LAQ, marching, PF/DF with knee extension, x 10 reps Provided skilled instruction in proper exercise performance Provided skilled manual cues to facilitate proper muscle recruitment and/or form: [] ASSESSMENT:?Pt able to perform toilet transfer with supervision, pepe from toilet seat to FWW supervision PLAN: Continued skilled PT for strengthening transfers balance and ambulation with least restrictive device TREATMENT CODE/TIME: [id number] 20mins(4:30-4:50pm) DISCHARGE RECOMMENDATION: Home with outpatient PT
[2024-04-14] MEDS: Heparin in 0.45% NaCl 25,000 UNIT/250 ML BAG 18 UNIT IV (16:52)
[2024-04-14 19:06] LABS: HCT 32.5 % (40.0-50.0); HGB 10.9 g/dL (13.5-17.5)
[2024-04-14 19:33] VITALS: BP 137/81; PULSE 99; RESP 17; TEMP 37.1; O2SAT 95
[2024-04-14 22:58] LABS: HCT 32.9 % (40.0-50.0); HGB 10.9 g/dL (13.5-17.5)
[2024-04-14 23:05] VITALS: BP 117/87; PULSE 99; RESP 18; TEMP 36.2; O2SAT 95
[2024-04-14 23:11] LABS: PTT Activated 66.3 sec (23.6-32.8)
[2024-04-15] MEDS: Heparin in 0.45% NaCl 25,000 UNIT/250 ML BAG 18 UNIT IV (02:29)
[2024-04-15 05:19] LABS: HCT 33.6 % (40.0-50.0); HGB 10.9 g/dL (13.5-17.5); MCH 29.5 pg (27.0-33.0); MCHC 32.4 % (32.0-36.0); MCV 91 fL (80-95); MPV 9.6 fL (8.0-11.0); Platelet Count 286 10^3/uL (130-400); RDW 13.7 % (11.8-14.1); RDW-SD 44.2 fL; WBC 8.55 10^3/uL (4.4-10.8)
[2024-04-15 05:33] LABS: PTT Activated 53.9 sec (23.6-32.8)
[2024-04-15] MEDS: Pantoprazole 40 MG VIAL IVP (05:44)
[2024-04-15] MEDS: Acetaminophen 325 MG TAB PO (06:49)
[2024-04-15] MEDS: Normal Saline Flush 10 ML SYR IVP (07:34)
[2024-04-15] MEDS: Apixaban 5 MG TAB 10 MG PO (07:34)
[2024-04-15 08:04] VITALS: BP 128/73; PULSE 95; RESP 18; TEMP 36.8; O2SAT 95
--- NOTE | 2024-04-15 08:41 | PDOC.HHF2F ---
Home Health Referral Home Health Orders Clinical synopsis of why skilled professionals are needed: PEs, recent trauma Registered Nurse: Check all that apply Instruct on new or changed medication(s)/assess compliance: Ordered Physical Therapist: Check all that apply Increase strength & endurance for safe mobility at home: Ordered To design/establish home maintenance program: Ordered Fall reduction therapy program for patient with history of frequent falls: Ordered Home safety evaluation and teaching/gait training including stair management (if applicable): Ordered Encounter Date and Reason: I certify that a FTF encounter for this patient was performed on April 15, 2024 and that such encounter was related to the primary reason the patient requires home health services. The encounter was conducted in the following manner: By me as the certifying physician, BOILER CONTROL TECHNICIAN, PA or By an inpatient physician, BOILER CONTROL TECHNICIAN or PA during an inpatient stay who communicated findings to me, Certification And Authentication I certify that I composed the above information based on my clinical judgment relating to this patient's medical condition and, if applicable, clinical findings communicated to me by the NPP or inpatient physician who performed the FTF encounter.
--- NOTE | 2024-04-15 08:42 | DSE_ITS ---
Date of service: 04/15/24 Time of Service: 11:45 DS: Diagnosis Discharge Diagnosis (1) Pulmonary emboli: Status: Chronic Asessment and Plan: -Provoked by significant trauma. -initially required 1-2L O2, now on room air -Treated with heparin drip, though held overnight 04/13 for dark stools and concern for GI bleed (see below) -Right heart strain on CT, but RV function normal on echo, mild elevation RVSP -LE doppler with occlusive DVT in posterior tibial veins throughout length of calf and one peroneal vein shows partially occlusive thrombus from proximal to mid calf -patient being discharge on PO eliquis 10mg BID for 1 week and then 5mg PO BID for total treatment of 3 months (2) Acute respiratory failure with hypoxia: Status: Acute Asessment and Plan: -secondary to PE as noted above -has required up to 2L NC, now on RA (3) GI bleed: Status: Chronic Asessment and Plan: -suspected with dark stools overnight but Hb remains stable -heparin drip held overnight -restarting heparin PM 04/14 without additional signs of GI bleeding and stable Hb -transitioned to PO eliquis as noted above (4) Ileus: Status: Acute Asessment and Plan: -imaging questionable for SBO, though patient has been tolerating PO intake and having well formed bowel movements (5) Blunt trauma of multiple sites of trunk: Status: Acute Discharge Plan Disposition Patient Disposition: Home W/Home Health Services Condition: Good Discharge Details Reason For Visit: Acute bilateral PE, Ileus Admit Date/Time: 04/12/24 21:04 Admit Provider: Hamlet Chacon Attending Provider: Hamlet Chacon Primary Care Provider: None,None Hospital Course Hospital Course: Patient initially presented to the hospital with abdominal pain and concerns for bloating and ileus but was found to have bilateral pulmonary emboli with saddle embolus with acute hypoxic respiratory failure. Imaging of his abdomen did not show any obstruction and patient was able to tolerate p.o. intake and had bowel movements during hospitalization. Additionally, he was on heparin drip did have a dark stool overnight 04/13/2024. Hemoglobin remained stable and heparin drip was restarted without any additional dark stools or change in hemoglobin. Therefore, patient was transitioned to treatment dose Eliquis for which she will be discharged on. Additionally, patient was seen by physical therapy who recommended home health PT services. Home Meds and New Rx's Prescriptions: New apixaban 5 mg Tablet See Rx Instructions .ROUTE .COMPLEX Qty: 208 0RF Rx Instructions: take 2x 5mg tabs twice a day, then 1x 5mg tab twice a day starting 04/22/2024 Continued tramadol 50 mg tablet 50 mg PO Q8H ondansetron 4 mg tablet,disintegrating 4 mg PO Q8H PRN (Reason: nausea and vomiting) Qty: 30 0RF cyclobenzaprine 5 mg tablet 5 mg PO TID PRN Discontinued naproxen 375 mg tablet 375 mg PO BID PRN Discharge Instructions Stand Alone Forms: Nursing Discharge Form Referrals: Ofelia Rivas [ [facility] STAFF PHYSICIAN] - (Please call the office to set up a new patient/hopsital follow up within 7-10 days) Activity:: Activity as Tolerated Equipment/Supplies:: No Equipment Needed Diet:: As Tolerated Discharge Orders Discharge Orders: Discharge Order (Routine); Ordered 04/15/24 Ordered By: Merrill Escalante Discharge Data Discharge Date/Time-TO BE ENTERED AT DEPARTURE: 04/15/24 10:22 DS: Summary Time Spent with Patient providing and/or coordinating discharge services: Greater than 30 minutes Status at Discharge Functional status at discharge: independent ambulation Overall status at discharge: patient is back to baseline Mental Status: mental status grossly normal Speech and Movement: speech and movement normal Mood: congruent mood Affect: normal affect Quality:SDOH Health Related Social Needs: No Data to Display Exam Narrative Exam Narrative: Well-appearing gentleman laying in bed in no acute distress, ANO x 4, heart regular rhythm, lungs clear to auscultation bilaterally, abdomen soft, nont adama, nondistended Psych Mental Status: mental status grossly normal Speech and Movement: speech and movement normal Mood: congruent mood Affect: normal affect DS: Data Vitals/I&O Vitals and I&O: Vital Signs Temperature 98.2 F 04/15/24 08:04 Temperature Source Tympanic 04/14/24 23:05 Pulse 95 H 04/15/24 08:04 Pulse 106 H 04/13/24 14:30 Respiratory Rate 18 04/15/24 08:04 Respiratory Effort Normal, Non-Labored 04/12/24 18:42 Blood Pressure 128/73 04/15/24 08:04 Blood Pressure Mean 91 04/13/24 14:00 Blood Pressure Position Supine 04/12/24 23:31 Pulse Oximetry 95 04/15/24 08:04 Oxygen Delivery Method Room Air 04/15/24 08:04 Oxygen Flow Rate 0 04/15/24 08:04 Pain Level 2 04/15/24 08:04 Comment aware of O2 sat 04/12/24 16:07 Comment 1L NC 04/12/24 23:31 Intake & Output 04/14/24 04/15/24 04/15/24 17:59 05:59 17:59 Intake Total 637.5 / 637.5 360.8 / 998.3 25.2 / 25.2 Output Total 50 / 50 Balance 637.5 / 637.5 310.8 / 948.3 25.2 / 25.2 Intake: IV 637.5 / 637.5 240.8 / 878.3 25.2 / 25.2 Oral 120 / 120 Output: Stool 50 / 50 Other: Urine Color Yellow Urine Appearance Clear Urine Odor None Stool Occult Blood Positive Stool Size Moderate Small Stool Characteristics Soft Soft Liquid Liquid Brown Black Voiding Methods Toilet Data Completed and Pending Labs on day of discharge: Labs from last 24 hours 04/15/24 04/15/24 04/15/24 23:00 17:00 11:00 WBC RBC Hgb Cancelled Cancelled Cancelled Hct Cancelled Cancelled Cancelled MCV MCH MCHC RDW Plt Count MPV APTT 04/15/24 04/15/24 04/14/24 05:10 05:00 22:52 WBC 8.55 RBC 3.70 L Hgb 10.9 L Cancelled 10.9 L Hct 33.6 L Cancelled 32.9 L MCV 91 MCH 29.5 MCHC 32.4 RDW 13.7 Plt Count 286 MPV 9.6 APTT 53.9 H 66.3 H 04/14/24 04/14/24 04/14/24 19:00 16:00 13:15 WBC RBC Hgb 10.9 L 11.2 L Hct 32.5 L 33.8 L MCV MCH MCHC RDW Plt Count MPV APTT 24.1 PFSH All Active Problems (Updated 04/14/24 @ 14:32 by Merrill Escalante MD) GI bleed (Chronic) Acute respiratory failure with hypoxia (Acute) DVT prophylaxis (Acute) Ileus (Acute) Pulmonary emboli (Chronic) Blunt head trauma (Acute) Blunt trauma of multiple sites of trunk (Acute) Social History Smoking/Tobacco Use Status: Never Smoking risk assessment performed?: Yes Alcohol Intake: current Alcohol Intake frequency: 0-2 drinks per day Drug use: Never Housing: other Do you feel safe at home: Yes Do you feel safe in your relationship?: Yes Time Spent with Patient Time Spent with Patient: <45 minutes Time was spent: preparing to see the patient(eg.review tests), obtaining and/or reviewing separately otained hiistory, ordering medications,tests, procedures, referring, communicating with other health health care attorney, indepentently interpreting results, counseling the patient and care coordination
--- NOTE | 2024-04-15 09:43 | PT.INTREAT ---
PT Notes Visit Reasons: Acute bilateral PE, Ileus Inpatient Physical Therapy Treatment Note [facility] Date: 04/15/24 PRECAUTIONS: SUBJECTIVE: Pt reports his shoulder only hurts from lying down in bed on that side. OBJECTIVE: Therapeutic Activities (02515a[1]): Direct one-on-one instruction in dynamic activities to improve functional performance. ? BED MOBILITY/TRANSFERS? Sit-stand: SBA? Stand-sit: SBA? Provided skilled cues and instruction on performance and technique throughout. Gait Training (04010d[]): Direct one-on-one instruction and skilled instruction in: GAIT? Assistive Device: FWW ? Weight bearing: Full Assist: SBA? Distance:? [id number] ? ASSESSMENT:? Pt was able to ambulate well but did require a fairly longer seated rest for the knee and shoulder. PLAN: Cont as per PT POC. TREATMENT CODE/TIME: 9:25-9:45 (20) DISCHARGE RECOMMENDATION: []
--- NOTE | 2024-04-15 15:22 | NUR.NOTE ---
Nursing Note: Received a call from [facility] asking to confirm the duration of treatment of Eliquis. Confirmed with Dr. Escalante and read back to [facility] 10mg BID for 1 week, then 5mg BID for the remainder of 3 months.
--- NOTE | 2024-04-15 18:39 | PDOC.CMDIS ---
Date of service: 04/15/24 Time of Service: 18:40 LACE Index Scoring Tool Questions: Length of Stay (in days): 3 Was the patient admitted via the E.D.?: Yes E.D. Visits: 1 Answers: Total Score: 7 Risk of Readmission: Low Risk Care Management Discharge Plan Reason for Hospitalization: acute bilateral PE, ileus Discharge Plan: Zohaib returned home today with new orders for HH RN, PT. He was transported home via private vehicle by family. He will follow up with his PCP and discharge plan of care. Patient/Family Education Needs: Review discharge instructions and limitations, discussion of self care needs including ask me three Services Needed at Discharge: Home Health Care Services (new HH RN, PT) SDOH Health Related Social Needs: No Data to Display
== END 2024-04-15 10:22 | disposition home health service (06) | DRG 175 ==
LOC: ER 21:08 → EDHOLD 04-13 02:25 → MS 04-13 14:51
PROVIDERS: Family Medicine; Admitting Provider Family Medicine; Emergency Provider Emergency Medicine; Visit Provider Family Medicine
DX: I26.94 Multiple subsegmental thrombotic pulmonary emboli without acute cor pulmonale (principal); J96.01 Acute respiratory failure with hypoxia; K56.7 Ileus, unspecified; K92.1 Melena; I82.451 Acute embolism and thrombosis of right peroneal vein; I82.441 Acute embolism and thrombosis of right tibial vein; Z79.01 Long term (current) use of anticoagulants; I51.89 Other ill-defined heart diseases; V89.2XXD Person injured in unspecified motor-vehicle accident, traffic, subsequent encounter; S30.1XXD Contusion of abdominal wall, subsequent encounter; S09.8XXD Other specified injuries of head, subsequent encounter; E66.01 Morbid (severe) obesity due to excess calories; Z68.33 Body mass index [BMI] 33.0-33.9, adult
CPT/HCPCS: 00123; 36415; 71275; 73552; 74177; 80053; 83690; 85027; 86850; 86900; 86901; 90656; 93005; 96365; 96366; 96375; 97110; 97530; 99285; 73590; 73630; 81003; 82272; 83735; 83880; 84484; 85014; 85018; 85025; 85610; 85730; 93010; 93306; 93971; 99223; 99232; 99233; 99239; J1644; J2405; J2470; J3490

== ENCOUNTER 2024-08-16 16:01 | Outpatient (CLI) | payer OTHER, SELFPAY ==
--- NOTE | 2024-08-16 11:00 | DI.RAD_ITS ---
Exam(s) XR KNEE RT 3V AP,LAT,ZEFERINO EXAM: XR KNEE RT 3V AP,LAT,ZEFERINO CLINICAL HISTORY: RIGHT KNEE PAIN. TECHNIQUE: 2D digital imaging was performed. Three views. COMPARISON: No exams were available for comparison FINDINGS: BONES: No acute fracture is present. No bony destructive lesion is seen. Small Enthesophytes at the patella and tibial tubercle. JOINTS: Joint spaces are maintained. The knee is normally aligned. No joint effusion is seen. SOFT TISSUE: Normal. IMPRESSION: Enthesophytes at the tibial tubercle and patella. The exam is otherwise unremarkable. DATA REPOSITORY: RADIATION DOSE DELIVERED:
== END 2024-08-16 16:02 | disposition home or self-care (01) ==
LOC: DIORS 16:02
PROVIDERS: Visit Provider Student in an Organized Health Care Education/Training Program
DX: S83.511D Sprain of anterior cruciate ligament of right knee, subsequent encounter (principal); X58.XXXD Exposure to other specified factors, subsequent encounter
CPT/HCPCS: 73562

== ENCOUNTER 2024-12-06 02:06 | Outpatient (CLI) | payer MEDICAID, SELFPAY ==
--- NOTE | 2024-12-06 12:59 | DI.RAD_ITS ---
Exam(s) XR FOOT RT COMPLETE EXAM: XR FOOT RT COMPLETE CLINICAL HISTORY: Right foot pain,m79.671. TECHNIQUE: 2D digital imaging was performed of the right foot. Three images were obtained. AP, obl ique and lateral views were obtained. COMPARISON: CR,XR XR FOOT RT COMPLETE from 04/12/2024 FINDINGS: BONES: No acute fracture is present. No bony destructive lesion is seen. There is an enthesophyte at the posterior calcaneus. There is a small plantar calcaneal spur. JOINTS: No dislocation present. There are mild degenerative changes seen in the foot predominantly in volving the interphalangeal joints. The finding is most marked at the 2nd toe. SOFT TISSUE: Normal. IMPRESSION: 1. Mild degenerative changes of the right foot. 2. No acute abnormality. DATA REPOSITORY: RADIATION DOSE DELIVERED:
== END 2024-12-06 02:26 ==
PROVIDERS: Visit Provider Podiatrist
DX: M79.671 Pain in right foot (principal)
CPT/HCPCS: 73630